=== PATIENT | female | born 1975 | race Caucasian/White ===

== ENCOUNTER 2020-03-07 15:30 | Emergency (ER) | payer OTHER ==
[~2020-03-07] VITALS: Ht 167.6 cm; Wt 120.2 kg
[~2020-03-07 15:30] MED LIST: AMBIEN 5 MG TABL5 M1 PO; BENICAR HCT 201 EACH; BENICAR HCT 401 EACH; BUSPAR15 MG PO; CELEBREX 200 M200 MG PO; CELEXA 20 MG TA20 M1 PO; CLEOCIN HCL300 MG PO; CYMBALTA60 MG PO; FLEXERIL PO; GABAPENTIN 100100 MG PO; HYDROCHLOROTHIA25 M1 PO; HYDROCODON-ACE1 EAC7 PO; HYDROCODONE-AP1 EAC6 PO; IBUPROFEN 800800 M1 PO; IMITREX100 MG PO; IRON325 PO; MAXALT MLT10 MG PO; MEDROLDOSEPACK PO; MOBIC15 MG PO; NAPROSYN500 MG PO; PAXIL40 MG PO; PERCOCET 5-3251 EACH PO; PROZAC 20 MG20 M1; PROZAC10 MG PO; TOPROL XL100 MG PO; VICODIN 5-5001 EACH PO
[2020-03-07] MEDS ORDERED: LOSARTAN-HCTZ1 EAC3 PO (15:48)
[2020-03-07] MEDS ORDERED: ADDERALL XR 1515 MG PO (15:48)
[2020-03-07] MEDS ORDERED: INDERAL LA120 M1 PO (15:48)
[2020-03-07] MEDS ORDERED: ABILIFY20 MG PO (15:48)
[2020-03-07] MEDS ORDERED: XANAX 0.5 MG0.5 M1 PO (15:48)
[2020-03-07] MEDS ORDERED: KLOR-CON M2020 MEQ PO (15:48)
[2020-03-07] MEDS ORDERED: FLEXERIL PO (16:19)
[2020-03-07] MEDS ORDERED: MEDROLDOSEPACK PO (16:19)
[2020-03-07] MEDS ORDERED: NORCO 5-325 TA1 EAC2 PO (16:19)
[2020-03-07 16:39] VITALS: BP 144/94
== END 2020-03-07 16:40 | disposition home or self-care (01) ==
LOC: M.ERS 15:30
DX: M54.42 Lumbago with sciatica, left side (principal); I10 Essential (primary) hypertension; N80.9 Endometriosis, unspecified; Z98.890 Other specified postprocedural states; Z88.5 Allergy status to narcotic agent; Z90.49 Acquired absence of other specified parts of digestive tract

== ENCOUNTER 2020-06-01 15:07 | Emergency (ER) | payer OTHER ==
[~2020-06-01] VITALS: Ht 167.6 cm; Wt 131.5 kg
[~2020-06-01 15:07] MED LIST changes: +ABILIFY20 MG PO; +ADDERALL XR 1515 MG PO; +INDERAL LA120 M1 PO; +KLOR-CON M2020 MEQ PO; +LOSARTAN-HCTZ1 EAC3 PO; +NORCO 5-325 TA1 EAC2 PO; +XANAX 0.5 MG0.5 M1 PO
[2020-06-01 16:13] LABS: ABSOLUTE BASOPHILS 0.1 thou/uL (0.0-0.2); ABSOLUTE EOSINOPHILS 0.2 thou/uL (0.0-0.7); ABSOLUTE LYMPHOCYTES 1.8 thou/uL (0.8-5.3); ABSOLUTE MONOCYTES 0.7 thou/uL (0.0-1.2); ABSOLUTE NEUTROPHILS 7.4 thou/uL (1.6-8.1); BASOPHILS 0.7 %; HEMATOCRIT 38.7 % (37.0-47.0); HEMOGLOBIN 13.4 gm/dL (12.0-15.0); LYMPHOCYTES 17.6 %; MCH 31.9 pg (26.0-34.0); MCHC 34.6 g/dL (28.0-37.0); MONOCYTES 6.5 %; MPV 7.8 fl. (7.2-11.1); NUCLEATED RBCS 0 /100WBC; PLATELET COUNT* 281 thou/uL (150-400); POLYS 73.2 %; RDW-CV 12.5 % (10.5-14.5); WBC 10.2 thou/uL (4.0-11.0)
[2020-06-01 16:16] LABS: CREATININE 0.8 mg/dL (0.6-1.3); POTASSIUM 3.6 mmol/L (3.5-5.1)
[2020-06-01 16:20] LABS: ALBUMIN 3.6 g/dL (3.4-5.0); TOTAL BILIRUBIN 0.4 mg/dL (<0.1-1.0); TOTAL PROTEIN 7.4 g/dL (6.4-8.2)
[2020-06-01 17:47] LABS: URINE BILIRUBIN NEGATIVE (Negative); URINE BLOOD NEGATIVE (Negative); URINE CLARITY CLEAR; URINE COLOR YELLOW; URINE GLUCOSE-RANDOM NEGATIVE (Negative); URINE KETONES NEGATIVE (Negative); URINE LEUKOCYTES-REFLEX NEGATIVE (Negative); URINE NITRITE-REFLEX NEGATIVE (Negative); URINE PROTEIN NEGATIVE (Negative); URINE SPECIFIC GRAVITY >= 1.030 (1.005-1.030); URINE UROBILINOGEN 0.2 E.U./dl (0.2-1.0)
[2020-06-01] MEDS ORDERED: MEDROLDOSEPACK PO (18:00)
[2020-06-01] MEDS ORDERED: NORCO 5-325 TA1 EAC2 PO (18:00)
[2020-06-01] MEDS ORDERED: IBUPROFEN 800800 M1 PO (18:00)
[2020-06-01 18:30] VITALS: BP 129/81
== END 2020-06-01 18:33 | disposition home or self-care (01) ==
LOC: M.ERS 15:07
PROVIDERS: Nurse Practitioner Family
DX: M54.41 Lumbago with sciatica, right side (principal); I10 Essential (primary) hypertension; F31.9 Bipolar disorder, unspecified; Z98.84 Bariatric surgery status; Z79.899 Other long term (current) drug therapy; Z88.6 Allergy status to analgesic agent; Z90.49 Acquired absence of other specified parts of digestive tract; Z98.890 Other specified postprocedural states